=== PATIENT | female | born 1935 | race Caucasian/White ===

== ENCOUNTER 2017-02-27 16:15 | Inpatient (IN) | payer OTHER ==
[~2017-02-27] VITALS: Ht 152.4 cm; Wt 45.4 kg
--- NOTE | 2017-02-27 16:23 | NUR ---
SUJEY FROM [facility] DT FLU LIKE SYMPTOMS AND DIARRHEA X 3 DAYS. PATIENT RECEIVED AWAKE AND ALERT. NOTED ON O2 VIA NC @2LPM. SKIN IS WARM TO TOUCH AND NON DIAPHORETIC. AFEBRILE. VSS
--- NOTE | 2017-02-27 16:30 | NUR ---
MD LEE AT BEDSIDE
[2017-02-27 16:53] LABS: EOSINOPHILS % (AUTO) 0.1 % (0.0-6.0); HEMATOCRIT 44 % (33-45); HEMOGLOBIN 13.8 g/dL (11.5-14.8); LYMPHOCYTES % (AUTO) 9.8 % (20.0-44.0); MEAN CORPUSCULAR HEMOGLOBIN 29 PG (26.0-33.0); MEAN CORPUSCULAR HGB CONC 32 g/dl (31.0-36.0); MEAN CORPUSCULAR VOLUME 90 fL (82-100); MONOCYTES # (AUTO) 0.4 /CMM (0.1-1.30); MONOCYTES % (AUTO) 1.9 % (2.0-12.0); NEUTROPHILS # (AUTO) 17.7 /CMM (1.8-8.9); NEUTROPHILS % (AUTO) 88.2 % (43.0-81.0); PLATELET COUNT (AUTO) 313 /CMM (150-450); RDW COEFFICIENT OF VARIATION 14.7 (11.5-15.0); RED BLOOD CELL COUNT(AUTO) 4.83 MIL/uL (4.0-5.2); WHITE BLOOD COUNT (AUTO) 20.1 K/uL (4.3-11.0)
[2017-02-27 17:15] LABS: INR 1.11 (0.87-1.13); PROTHROMBIN TIME 11.6 SECS (9.5-12.7)
[2017-02-27 17:17] LABS: TROPONIN I < 0.017 ng/mL (0.00-0.056)
[2017-02-27 17:22] LABS: ALANINE AMINOTRANSFERASE 25 U/L (12-78); ALBUMIN 2.2 g/dL (3.4-5.0); ALKALINE PHOSPHATASE 163 U/L (46-116); ASPARTATE AMINOTRANSFERASE 31 U/L (15-37); B-TYPE NATRIURETIC PEPTIDE 6116 PG/ML (0-125); BILIRUBIN,DIRECT 0.2 mg/dL (0.0-0.2); BILIRUBIN,TOTAL 0.4 mg/dL (0.2-1.0); CALCIUM, SERUM 8.6 mg/dL (8.5-10.1); CARBON DIOXIDE 27 mmol/L (21-32); CHLORIDE 109 mmol/L (98-107); CREATININE 1.6 mg/dL (0.6-1.3); GLUCOSE 108 mg/dL (74-106); SODIUM SERUM 147 mmol/L (136-145); TOTAL PROTEIN, SERUM 6.8 g/dL (6.4-8.2); UREA NITROGEN, BLOOD 38 mg/dL (7-18)
[2017-02-27 17:26] LABS: POTASSIUM 2.6 mmol/L (3.5-5.1)
[2017-02-27] MEDS ORDERED: ASPI-1169 PO (17:42)
[2017-02-27] MEDS ORDERED: MIRT15TA7 PO (17:42)
[2017-02-27] MEDS ORDERED: ATOR80TA PO (17:42)
[2017-02-27] MEDS ORDERED: BETH25TA PO (17:42)
[2017-02-27] MEDS ORDERED: TRAZ-144 PO (17:42)
[2017-02-27] MEDS ORDERED: APIX2.5T PO (17:42)
--- NOTE | 2017-02-27 17:58 | NUR ---
PATIENT WAS TAKEN TO CT
[2017-02-27] MEDS ORDERED: VANCOMYCIN 1 GM in IV D5W 250 ML IV ONE (18:00)
[2017-02-27] MEDS ORDERED: PIPERACILLIN /TAZOBACTAM 2.25 G in IV D5W 50 ML IV ONE (18:00)
[2017-02-27] MEDS ORDERED: IV NS 0.9% 1,000 ML BAG IV ONE (18:00)
--- NOTE | 2017-02-27 18:25 | NUR ---
CALLED PHARMACY FOR POTASSIUM
--- NOTE | 2017-02-27 18:48 | NUR ---
JOSELYN SULILVAN (DR. MENDES)
--- NOTE | 2017-02-27 19:17 | NUR ---
REPORT GIVE TO CHRISTIANO TAYLOR
[2017-02-27] MEDS: POTASSIUM CL. PREMIX PERIPHER. 50 ML IV SCH ×2 (19:20→20:40)
[2017-02-27] MEDS ORDERED: IV NS 0.9% 1,000 ML IV PRN (19:22)
[2017-02-27] MEDS ORDERED: HYDROCODONE/APAP 5/325MG 1 EACH TABLET PO PRN (19:30)
[2017-02-27] MEDS ORDERED: MAGNESIUM HYDROXIDE 30 ML UDC PO PRN (19:30)
[2017-02-27] MEDS ORDERED: ACETAMINOPHEN 325 MG TABLET PO PRN (19:30)
[2017-02-27] MEDS ORDERED: ONDANSETRON HCL/PF 4 MG/2 ML VIAL IVP PRN (19:30)
[2017-02-27] MEDS ORDERED: Z GUARD REMEDY 2 OZ OINT TP PRN (19:30)
[2017-02-27] MEDS ORDERED: MAG HYDROX/AL HYDROX/SIMETH 30 ML UDC PO PRN (19:30)
--- NOTE | 2017-02-27 20:06 | NUR ---
Report given to Yusuf ALVARADO for admission and gbay.
--- NOTE | 2017-02-27 20:57 | NUR ---
Patient transferred to tele floor via als protocol, no incident noted. Endorsed to Yusuf ongoing IV NS infusing with about 400cc left and ongoing 2nd bag of kcl. family at bedside.
[2017-02-27 21:00] VITALS: BP 102/75
--- NOTE | 2017-02-27 21:30 | NUR ---
DENTAL COORDINATOR NOTE: RECEIVED PATIENT FROM ER, NO ACUTE DISTRESS NOTED, FAMILY AT BEDSIDE. BREATHING EVEN AND UNLABORED, NO SOB NOTED. IV TO RAC IN PLACE AND LFA IN PLACE. ORIENTED PATIENT TO ROOM AND USE OF CALL LIGHT. LUONG CATHETER IN PLACE. BED LOCKED AND IN LOWEST POSITION, CALL LIGHT IN REACH. WILL CONTINUE TO MONITOR. Addendum: 02/28/17 at 0624 by SNEHA RIVERA RN TELE READING AFIB, HR 100-120
[2017-02-27] MEDS ORDERED: ZOLPIDEM TARTRATE 5 MG TABLET PO PRN (22:00)
[2017-02-27] MEDS: TRAZODONE 50 MG TABLET PO SCH (22:27)
[2017-02-27] MEDS: MIRTAZAPINE 15 MG TABLET PO SCH (22:27)
--- NOTE | 2017-02-27 23:00 | NUR ---
WAFER CUTTER NOTE: MONTSE NURSELEDY AT BEDSIDE TRYING TO START MIDLINE. UNABLE TO GET MIDLINE PLACED. PATIENT ALSO HAS ORDERS FOR PICC LINE. MIDLINE SPOKE TO REAL AND WILL TRY IN MORNING TO START PICC LINE. FAMILY STILL AT BEDSIDE, INFORMED THAT PATIENT NEEDS PICC LINE PLACEMENT SINCE PATIENT IS A HARD STICK. OBTAIN CONSENT FOR PICC LINE PLACEMENT. WILL CONTINUE TO MONITOR.
[2017-02-27] MEDS: ZOSYN IVPB 2.25 G in IV D5W 50ml IV SCH (23:17)
[2017-02-28] VITALS: BP 109/81
[2017-02-28 02:38] LABS: APPEARANCE,URINE CLOUDY (CLEAR); BILIRUBIN,URINE 2+ (NEGATIVE); BLOOD, URINE 3+ Ery/uL (NEGATIVE); COLOR,URINE BROWN (YELLOW); KETONES,URINE TRACE (NEGATIVE); LEUKOCYTE ESTERASE ,URINE TRACE (NEGATIVE); NITRITE, URINE POSITIVE (NEGATIVE); PH,URINE 6.5 (5.0-8.0); PROTEIN,URINE 3+ mg/dl (NEGATIVE); UGLUCOSE NEGATIVE (NEGATIVE)
--- NOTE | 2017-02-28 03:00 | NUR ---
MS RN NOTE: PATIENT IV TO RAC, DISLODGED, IV REMOVED, COVERED WITH GAUZE, PRESSURE APPLIED AND SECURED WITH TAPE. WILL CONTINUE TO MONITOR
[2017-02-28 03:20] LABS: BACTERIA,URINE None seen /HPF (None Seen); RBC,URINE TOO NUMEROUS TO COUN /HPF (0-2); SQUAMOUS EPITHELIAL CELL,UR None Seen /HPF (None Seen); WBC,URINE NONE SEEN /HPF (0-3)
[2017-02-28 04:00] VITALS: BP 116/62
[2017-02-28] MEDS: ZOSYN IVPB 2.25 G in IV D5W 50ml IV SCH ×4 (06:04→23:57)
--- NOTE | 2017-02-28 06:05 | NUR ---
SUPERVISOR OF COMMUNICATIONS NOTE: PATIENT RESTING IN BED, NO ACUTE DISTRESS NOTED. BREATHING EVEN AND UNLABORED, NO SOB NOTED. IV TO LFA IN PLACE. LUONG CATHETER IN PLACE. BED LOCKED AND IN LOWEST POSITION, CALL LIGHT IN REACH. WILL ENDORSE TO DAY NURSE TO CONTINUE WITH PLAN OF CARE.
[2017-02-28 06:51] LABS: BASOPHILS % (AUTO) 0.1 % (0.0-2.0); EOSINOPHILS % (AUTO) 0.1 % (0.0-6.0); HEMATOCRIT 38 % (33-45); HEMOGLOBIN 12.3 g/dL (11.5-14.8); LYMPHOCYTES # (AUTO) 1.3 /CMM (0.8-4.8); LYMPHOCYTES % (AUTO) 7.5 % (20.0-44.0); MEAN CORPUSCULAR HEMOGLOBIN 30 PG (26.0-33.0); MEAN CORPUSCULAR HGB CONC 33 g/dl (31.0-36.0); MEAN CORPUSCULAR VOLUME 91 fL (82-100); MONOCYTES # (AUTO) 0.8 /CMM (0.1-1.30); NEUTROPHILS # (AUTO) 14.7 /CMM (1.8-8.9); NEUTROPHILS % (AUTO) 87.3 % (43.0-81.0); PLATELET COUNT (AUTO) 250 /CMM (150-450); RDW COEFFICIENT OF VARIATION 14.4 (11.5-15.0); RED BLOOD CELL COUNT(AUTO) 4.15 MIL/uL (4.0-5.2); WHITE BLOOD COUNT (AUTO) 16.9 K/uL (4.3-11.0)
[2017-02-28 07:23] LABS: CALCIUM, SERUM 8.1 mg/dL (8.5-10.1); CARBON DIOXIDE 20 mmol/L (21-32); CHLORIDE 120 mmol/L (98-107); CREATININE 1.5 mg/dL (0.6-1.3); GLUCOSE 96 mg/dL (74-106); MAGNESIUM 1.9 mg/dL (1.8-2.4); PHOSPHORUS 3.8 mg/dL (2.5-4.9); POTASSIUM 2.9 mmol/L (3.5-5.1); SODIUM SERUM 154 mmol/L (136-145); UREA NITROGEN, BLOOD 38 mg/dL (7-18)
--- NOTE | 2017-02-28 07:45 | NUR ---
JOURNALISM INTERN NOTES PATIENT ALERT AND ORIENTED X3, MICRONESIAN SPEAKING ONLY, BREATHING EVEN AND UNLABORED, NO DISTRESS NOTED, DENIES PAIN OR DISCOMFORT AT THIS TIME, NEEDS ATTENDED AND MET, KEPT COMFORTABLE, CALL LIGHT WITHIN REACH, SAFETY MEASURES IN PLACED, WILL CONTINUE TO MONITOR.
[2017-02-28 08:00] VITALS: BP_SYST 100; BP_SYST 102; BP_DIAS 56; BP_DIAS 57
[2017-02-28] MEDS ORDERED: POTASSIUM CHLORIDE 20 MEQ TAB.PRT.SR PO ONE (08:30)
[2017-02-28] MEDS ORDERED: IV 1/2NS 1000 ML 1,000 ML IV SCH (08:30)
[2017-02-28] MEDS ORDERED: ASPIRIN 81 MG TAB.CHEW PO SCH (09:00)
[2017-02-28] MEDS ORDERED: APIXABAN 2.5 MG TABLET PO SCH (09:00)
[2017-02-28] MEDS ORDERED: APIXABAN 2.5 MG TABLET PO ONE (09:00)
[2017-02-28] MEDS: BETHANECHOL CHLORIDE (25 MG) 25 MG TABLET PO SCH (09:29)
[2017-02-28] MEDS: POTASSIUM CL. PREMIX PERIPHER. 50 ML IV SCH ×4 (09:49→14:09)
--- NOTE | 2017-02-28 11:48 | NUR ---
RESEARCH ASSOCIATE MOLECULAR BIOLOGY NOTES TELE MONITOR SHOWS A. FIB WITH HEART UPTO 126. PATIENT RESTING, ALERT AND ORIENTED, DENIES ANY CHEST PAIN. INFORMED DR. MENDES. RECEIVED NEW ORDER FOR CARDIZEM 10MG IV ONCE FOR HR > 110. ORDER NOTED AND CARRIED OUT.
[2017-02-28] MEDS ORDERED: DILTIAZEM HCL 50 MG IV IV ONE (12:00)
[2017-02-28] MEDS ORDERED: DILTIAZEM HCL 25 MG IV IV ONE (12:30)
--- NOTE | 2017-02-28 12:52 | NUR ---
ENGLISH COMPOSITION INSTRUCTOR NOTES CARDIZEM GIVEN SLOWLY. RECHECKED VS AFTER, HR 96 BP 90/58. PATIENT ALERT AND ORIENTED X3, NO CHANGE IN LOC, NO DISTRESS NOTED. WILL CLOSELY MONITOR.
--- NOTE | 2017-02-28 13:02 | NUR ---
PHYSICAL THERAPY ASSISTANT INSTRUCTOR NOTES BP RECHECKED AND IMPROVED, 108/69, HR 102. STILL COMPLAINING OF EAR PAINPATIENT ASLEEP BUT EASILY AROUSABLE. NO DISTRESS NOTED. WILL CLOSELY MONITOR. Addendum: 02/28/17 at 1303 by BECCA MCGUIRE RN ADDENDUM: DR. MENDES AWARE OF EAR PAIN.
[2017-02-28] MEDS: Potassium Chloride 20 MEQ in IV D5W 1,000 ML IV PRN (15:16)
[2017-02-28 17:59] VITALS: BP 118/71
[2017-02-28] MEDS: BOOST PLUS FOOD-VANILLA 237 ML BOX PO SCH (17:59)
--- NOTE | 2017-02-28 18:31 | NUR ---
UX INTERACTION DESIGNER NOTES PATIENT ALERT AND ORIENTED X3, DAUGHTER AT BEDSIDE, NO DISTRESS NOTED, HR SHOWS 108 AT THIS TIME. DENIES PAIN OR DISCOMFORT. PATIENT KEPT COMFORTABLE, NEEDS ATTENDED AND MET, SKIN DRY AND INTACT, Z-GUARD APPLIED FOR SKIN PROTECTION. PATIENT HAD MULTIPLE LOOSE BM TODAY, IVF INFUSING AND TOLERATING WELL, BUE NOTED WITH NON-PITTING EDEMA. CALL LIGHT WITHIN REACH, WILL ENDORSE TO ADMINISTRATIVE ASST FOR CURT.
--- NOTE | 2017-02-28 19:00 | NUR ---
RN OPENING NOTES PT IN BED, AWAKE, ALGERIAN SPEAKING, VERBALLY RESPONSIVE, NO NOTED FACIAL GRIMACING, NO SIGNS AND SYMPTOMS OF ACUTE DISTRESS, PT NOTED TO HAVE UNCONTROLLED A-FIB SR @ 136. NOTED PT WITH NO SOB, BREATHING EVEN AND UNLABORED. CALL LIGHT PLACED WITHIN EASY REACH. WILL CONTINUE TO MONITOR.
[2017-02-28 20:08] VITALS: BP 102/56
[2017-02-28] MEDS: TRAZODONE 50 MG TABLET PO SCH (21:35)
[2017-02-28] MEDS: ATORVASTATIN 40 MG TABLET PO SCH (21:35)
[2017-02-28] MEDS: MIRTAZAPINE 15 MG TABLET PO SCH (21:35)
[2017-03-01] VITALS (7 sets, daily range): BP systolic 81–141; BP diastolic 52–68
[2017-03-01] MEDS: DILTIAZEM HCL 25 MG IV IV PRN ×2 (02:51→12:39)
--- NOTE | 2017-03-01 02:51 | NUR ---
RN NOTES PT STILL A-FIB , HEART RATE IS GOING UP TO 132- CARDIZEM 10MG IV GIVEN PER MD'S ORDER, V/S STABLE
[2017-03-01] MEDS: ZOSYN IVPB 2.25 G in IV D5W 50ml IV SCH ×4 (05:02→23:58)
[2017-03-01] MEDS: Potassium Chloride 20 MEQ in IV D5W 1,000 ML IV PRN (05:54)
--- NOTE | 2017-03-01 06:21 | NUR ---
RN CLOSING NOTES PT IN BED, ASLEEP BUT EASILY AROUSABLE, VERBALLY RESPONSIVE, NOTED WITH NO SOB, BREATHING EVEN AND UNLABORED, NO C/O PAIN AT THIS TIME, CONTINUES TO RECEIVE IV HYDRATION ORDERED VIA MIDLINE ON ARIES, PATENT AND INFUSING WELL. PT WITH LUONG CATHETER DRAINING WELL WITH YELLOW URINE. PT CONTINUES TO BE ON AFIB WITH SR @ 99. ALL PATIENT'S NEEDS ATTENDED TO, PLACED BED IN LOW POSITION AND LOCKED IN PLACE. CALL LIGHT PLACED WITHIN EASY REACH. WILL ENDORSE TO AM NURSE FOR CONTINUITY OF CARE.
--- NOTE | 2017-03-01 07:55 | NUR ---
TELE/RN PATIENT RECEIVED PATEINT RECEIVED IN BED AWAKE. JAMAICAN SPEAKING. ALERT AND ORIENTED TO PERSON, PLACE AND SITUATION. THE PATIENT WITH UNCONTROLLED AFIB AT 110. AUGUSTINE PAIN. RESPIRATION REGULAR AND UNLABORED. DENIES SOB. IN NO APPARENT DISTRESS. BED LOW AND LOCKED. BED ALARM ON. CALL LIGHT WITHIN REACH. WILL CONTONUE TO MONITOR.
[2017-03-01] MEDS: APIXABAN 2.5 MG TABLET PO SCH (09:00)
[2017-03-01] MEDS ORDERED: POTASSIUM CL. PREMIX PERIPHER. 50 ML IV SCH ×2 (10:00→13:00)
--- NOTE | 2017-03-01 11:14 | NUR ---
MS/RN Cardizem Patient's heart rate noted to be 125 on monitor. Order already written to administer cardizem 10mg IVP if HR greater than 110. Vital signs taken and heart rate confirmed to be greater than 110, blood pressure 107/74. Spoke with SHANIQUE Espinosa, stated to hold medication at this time as heart rate now reading 105-113 on tele monitor. Will continue to monitor.
[2017-03-01] MEDS: BOOST PLUS FOOD-VANILLA 237 ML BOX PO SCH ×2 (11:15→16:54)
[2017-03-01] MEDS: BETHANECHOL CHLORIDE (25 MG) 25 MG TABLET PO SCH (11:15)
--- NOTE | 2017-03-01 12:51 | NUR ---
MS/RN Cardizem Heart rate sustaining at 120-130, per MD order cardizem 10mg given IVP over two minutes. nuclear medicine technician made aware and monitored patient's rhythm. Heart rate after five minutes 99. Will continue to monitor.
--- NOTE | 2017-03-01 13:54 | NUR ---
MS/tree inspector rate Heart rate now 98.
[2017-03-01] MEDS: POTASSIUM CL. PREMIX PERIPHER. 50 ML IV SCH ×6 (14:33→22:20)
[2017-03-01 15:15] LABS: BASOPHILS % (AUTO) 0.1 % (0.0-2.0); EOSINOPHILS # (AUTO) 0.1 /CMM (0.0-0.7); EOSINOPHILS % (AUTO) 0.7 % (0.0-6.0); HEMATOCRIT 34 % (33-45); HEMOGLOBIN 10.7 g/dL (11.5-14.8); LYMPHOCYTES # (AUTO) 1.1 /CMM (0.8-4.8); LYMPHOCYTES % (AUTO) 8.4 % (20.0-44.0); MEAN CORPUSCULAR HEMOGLOBIN 29 PG (26.0-33.0); MEAN CORPUSCULAR HGB CONC 32 g/dl (31.0-36.0); MEAN CORPUSCULAR VOLUME 90 fL (82-100); MONOCYTES # (AUTO) 0.4 /CMM (0.1-1.30); MONOCYTES % (AUTO) 3.3 % (2.0-12.0); NEUTROPHILS # (AUTO) 11.1 /CMM (1.8-8.9); NEUTROPHILS % (AUTO) 87.5 % (43.0-81.0); PLATELET COUNT (AUTO) 228 /CMM (150-450); RDW COEFFICIENT OF VARIATION 14.9 (11.5-15.0); RED BLOOD CELL COUNT(AUTO) 3.74 MIL/uL (4.0-5.2); WHITE BLOOD COUNT (AUTO) 12.7 K/uL (4.3-11.0)
[2017-03-01 15:35] LABS: TROPONIN I < 0.017 ng/mL (0.00-0.056)
[2017-03-01 15:41] LABS: CHOLESTEROL 68 mg/dL (<200); HDL CHOLESTEROL 30 mg/dL (40-60); LDL 24 mg/dL (0-99); THYROID STIMULATING HORMONE 0.788 uIU/mL (0.358-3.74); TRIGLYCERIDES 122 mg/dL (30-150)
--- NOTE | 2017-03-01 17:04 | NUR ---
MS/RN Elevated heart rate Patient's heart rate to be 157, patient checked, appears in no distress, denies pain or discomfort. Dr Oleary called, awaiting call back.
[2017-03-01] MEDS ORDERED: DIGOXIN INJ 0.5 MG/2 ML AMPUL IV ONE ×2 (17:30→23:30)
--- NOTE | 2017-03-01 17:30 | NUR ---
MS/RN Digoxin Received call back from Dr Oleary: -digoxin 0.5mg IV X1 now -digoxin 0.25mg IV X2 dosages every six hours -digoxin o.125mg daily, starting Sunday. Orders entered into computer, waiting for pharmacy to verify.
[2017-03-01 17:47] LABS: CALCIUM, SERUM 7.4 mg/dL (8.5-10.1); CARBON DIOXIDE 18 mmol/L (21-32); CHLORIDE 112 mmol/L (98-107); CREATININE 1.8 mg/dL (0.6-1.3); GLUCOSE 126 mg/dL (74-106); POTASSIUM 3.5 mmol/L (3.5-5.1); SODIUM SERUM 144 mmol/L (136-145); UREA NITROGEN, BLOOD 41 mg/dL (7-18)
--- NOTE | 2017-03-01 17:58 | NUR ---
MS/RN Digoxin 0.5mg First dose of digoxin administered IVP slowly. Before medication heart rate 157, post medication 130's. Will continue to monitor.
--- NOTE | 2017-03-01 19:30 | NUR ---
RN INITIAL NOTES PATIENT UP IN BED, ALERT AND ORIENTED X 2, VERBALLY RESPONSIVE, NOTED WITH NO SOB, BREATHING EVEN AND UNLABORED, CONTINUES TO RECEIVE IV MEDICATION ORDERED VIA MIDLINE ON ARIES. PT'S DAUGHTER, KITA AT BEDSIDE. PATIENT WITH NO C/O PAIN, NO SIGNS AND SYMPTOMS OF ACUTE DISTRESS AT THIS TIME. ALL PATIENT'S NEEDS ATTENDED TO. CALL LIGHT PLACED WITHIN EASY REACH. WILL CONTINUE TO MONITOR.
[2017-03-01] MEDS: TRAZODONE 50 MG TABLET PO SCH (21:44)
[2017-03-01] MEDS: ATORVASTATIN 40 MG TABLET PO SCH (21:44)
[2017-03-01] MEDS: MIRTAZAPINE 15 MG TABLET PO SCH (21:44)
--- NOTE | 2017-03-01 23:41 | NUR ---
RN NOTE PATIENT'S HR @ 103 BPM, DIGOXIN 0.25 MG GIVEN VIA SLOW IV PUSH, ORDERED.
[2017-03-02] VITALS (7 sets, daily range): BP systolic 90–116; BP diastolic 45–79
--- NOTE | 2017-03-02 03:38 | NUR ---
RN NOTES NOTED PT WITH BP AT 72/40, PT IS ASLEEP, EASILY AWOKEN AND VERBALLY RESPONSIVE. INFORMED DR. AURA QUIROGA, RECEIVED NEW ORDER TO GIVE IV NS 500MG BOLUS DOSE. ALL ORDERS NOTED AND CARRIED OUT.
[2017-03-02] MEDS ORDERED: IV NS 0.9% 500 ML IV ONE (04:00)
[2017-03-02] MEDS: ZOSYN IVPB 2.25 G in IV D5W 50ml IV SCH ×3 (05:04→17:21)
[2017-03-02] MEDS ORDERED: DIGOXIN INJ 0.5 MG/2 ML AMPUL IV ONE (05:30)
--- NOTE | 2017-03-02 05:58 | NUR ---
RN NOTE PATIENT'S HEART RATE @ 81 BPM, DIGOXIN 0.25 MG GIVEN VIA SLOW IV PUSH ORDERED.
--- NOTE | 2017-03-02 06:56 | NUR ---
RN CLOSING NOTES PATIENT IN BED, ASLEEP BUT EASILY AROUSABLE, VERBALLY RESPONSIVE. NOTED WITH NO SOB, BREATHING EVEN AND UNLABORED, NOTED WITH NO FACIAL GRIMACING, CONTINUES TO RECEIVE O2 VIA NC @2LPM. PT WITH O2 SAT @ 100%. PT WITH BP @ 93/56, CONTINUES TO BE ON A-FIB WITH SR @ 81 BPM. WITH IV MIDLINE ON ARIES. ALL PATIENT'S NEEDS ATTENDED TO, PLACED CALL LIGHT WITHIN EASY REACH, PLACED BED IN LOW POSITION, LOCKED IN PLACE.
--- NOTE | 2017-03-02 07:30 | NUR ---
PUMPMAN NOTES PT IN BED, ASLEEP, EASY TO AROUSE, ALERT AND VERBALLY RESPONSIVE, NOT IN DISTRESS, VITAL SIGNS STABLE, AFEBRILE, CALL LIGHT WITHIN REACH, KEPTWARM AND COMFORTABLE.
[2017-03-02 07:59] LABS: BASOPHILS % (AUTO) 0.2 % (0.0-2.0); EOSINOPHILS # (AUTO) 0.1 /CMM (0.0-0.7); EOSINOPHILS % (AUTO) 1.5 % (0.0-6.0); HEMATOCRIT 29 % (33-45); HEMOGLOBIN 9.2 g/dL (11.5-14.8); LYMPHOCYTES % (AUTO) 14.6 % (20.0-44.0); MEAN CORPUSCULAR HEMOGLOBIN 29 PG (26.0-33.0); MEAN CORPUSCULAR HGB CONC 32 g/dl (31.0-36.0); MEAN CORPUSCULAR VOLUME 89 fL (82-100); MONOCYTES # (AUTO) 0.3 /CMM (0.1-1.30); MONOCYTES % (AUTO) 4.4 % (2.0-12.0); NEUTROPHILS # (AUTO) 5.5 /CMM (1.8-8.9); NEUTROPHILS % (AUTO) 79.3 % (43.0-81.0); PLATELET COUNT (AUTO) 190 /CMM (150-450); RDW COEFFICIENT OF VARIATION 14.6 (11.5-15.0); WHITE BLOOD COUNT (AUTO) 6.9 K/uL (4.3-11.0)
[2017-03-02] MEDS: BETHANECHOL CHLORIDE (25 MG) 25 MG TABLET PO SCH (08:34)
[2017-03-02] MEDS: APIXABAN 2.5 MG TABLET PO SCH (08:34)
--- NOTE | 2017-03-02 08:35 | NUR ---
BINDER LAYER NOTES PT IN BED, AWAKE, NOT IN DISTRESS, SEEN BY DR. MENDES, INFORMED OF PT'S EPISODE OF LOW BP.
[2017-03-02] MEDS: BOOST PLUS FOOD-VANILLA 237 ML BOX PO SCH ×2 (08:50→17:21)
[2017-03-02 10:30] LABS: ALANINE AMINOTRANSFERASE 24 U/L (12-78); ALKALINE PHOSPHATASE 111 U/L (46-116); ASPARTATE AMINOTRANSFERASE 30 U/L (15-37); BILIRUBIN,TOTAL 0.2 mg/dL (0.2-1.0); CALCIUM, SERUM 7.6 mg/dL (8.5-10.1); CARBON DIOXIDE 22 mmol/L (21-32); CHLORIDE 115 mmol/L (98-107); CREATININE 1.5 mg/dL (0.6-1.3); GLUCOSE 116 mg/dL (74-106); MAGNESIUM 1.7 mg/dL (1.8-2.4); PHOSPHORUS 2.2 mg/dL (2.5-4.9); POTASSIUM 4.3 mmol/L (3.5-5.1); SODIUM SERUM 144 mmol/L (136-145); TOTAL PROTEIN, SERUM 4.9 g/dL (6.4-8.2); UREA NITROGEN, BLOOD 35 mg/dL (7-18)
[2017-03-02 10:33] LABS: TROPONIN I 0.024 ng/mL (0.00-0.056)
[2017-03-02 10:40] LABS: ALBUMIN 1.4 g/dL (3.4-5.0)
--- NOTE | 2017-03-02 11:19 | NUR ---
IRISH MOSS GATHERER NOTES DR. HOWE INFORMED OF ABNORMAL MAGNESIUM AND PHOS LEVELS, ORDERS GIVEN, ALSO INFORMED OF LOW ALBUMIN LEVEL, NO ORDER GIVEN, NOTED AND CARRIED OUT.
[2017-03-02] MEDS ORDERED: NEUTRA PHOS 1 POWD.PACKET PO ONE (11:30)
[2017-03-02] MEDS: Magnesium 1GM/D5W 100ML PREMIX 1 G in PREMIX 1 EA IV SCH ×2 (13:16→14:24)
[2017-03-02] MEDS ORDERED: Digoxin PO (15:01)
[2017-03-02] MEDS ORDERED: LEVO500T75 PO (15:01)
--- NOTE | 2017-03-02 19:15 | NUR ---
NEWSPAPER COLUMNIST NOTES PT IN BED, AWAKE, ALERT AND ORIENTED, DISCHARGE ORDER GIVEN BY MD, DISCHARGE AND MEDICATION INSTRUCTIONS PROVIDED TO PT AND PT'S DAUGHTER LURDES, VERBALIZED UNDERSTANDING, PRESCRIPTION GIVEN TO DAUGHTER, BELONGINGS ACCOUNTED FOR, INITIAL [place] [facility] ATTEND[facility] TIME IS 1730, AMBULANCE CALLED, SAID THEY ARE GOING TO BE LATE AND THEY WILL ARRIVE AT 1830, AMBULANCE [place] [facility] ATTENDANT CAME, NOTED PT'S BP IS 92/60 WITH HR OF 78, CHECKED MANUALLY, 90/50, PT DOES NOT COMPLAIN OF DIZZINESS, NO CHANGE OF LEVEL OF CONSCIOUSNESS, DR. MENDES INFORMED OF PT'S LOW BP, PLACED AMBULANCE ON WILL CALL WHILE WAITING FOR MD'S ORDER, MD TEXTED BACK AND SAID IT IS OK FOR PT TO BE DISCHARGED, NO NEW ORDERS GIVEN, PT'S DAUGHTER LURDES AT BEDSIDE, AWAITING PT [place] [facility] ATTENDANT.
--- NOTE | 2017-03-02 20:09 | NUR ---
TELE/RN CALLED THE DAUGHTER, LURDES, , TOLD HER THAT THE DOCTOR CLEARED HER MOTHER FOR DISCHARGE. THE DAUGHTER WAS UPSET, PER DAUGHTER HER MOM'S BP WAS NOT GOOD AND THAT SHE IS NOT COMFORTABLE OF HER MOM GOING TO ASSISTED [facility]IVING FACILITY FOR SHE WILL SURELY COME BACK TO THE E.R. IF THE BP IS THE SAME IN THE FACILITY. SHE FURTHER SAID THAT SHE WANTS HER MOM TO STAY HERE AND OBSERVE BP UNTIL TOMORROW. PLACED CALL TO [facility], LEFT MESSAGE.
--- NOTE | 2017-03-02 20:59 | NUR ---
TELE/RN CALLED AGAIN [facility] AND SPOKE DR. CHAVARRIA. INFORMED DR. CHAVARRIA OF THE DISCHARGE ISSUE. RECEIVED ORDER TO HOLD THE D/C.
--- NOTE | 2017-03-02 21:04 | NUR ---
TELE/RN LURDES, DAUGHTER, WAS NOTIFIED RE: D/C WAS HELD.
[2017-03-02] MEDS: TRAZODONE 50 MG TABLET PO SCH (22:00)
[2017-03-02] MEDS: ATORVASTATIN 40 MG TABLET PO SCH (22:00)
[2017-03-02] MEDS: MIRTAZAPINE 15 MG TABLET PO SCH (22:00)
[2017-03-03] VITALS: BP 107/67
[2017-03-03] MEDS: ZOSYN IVPB 2.25 G in IV D5W 50ml IV SCH ×3 (00:07→11:55)
--- NOTE | 2017-03-03 02:13 | NUR ---
MS/RN PATIENT IS SLEEPING, AROUSABLE, APPEAR COMFORTABLE, NO SIGNS OF DISTRESS NOTED, CALL LIGHT IN REACH. WILL CONTINUE TO MONITOR.
[2017-03-03 04:00] VITALS: BP 104/69
--- NOTE | 2017-03-03 06:08 | NUR ---
MS/RN STILL SLEEPING, AROUSABLE, APPEAR COMFORTABLE, NO DISTRESS NOTED, ALL NEEDS ATTENDED AT THIS TIME. WILL CONTINUE TO MONITOR.
--- NOTE | 2017-03-03 07:20 | NUR ---
RN NOTES: PATIENT RESTING IN BED. PATIENT AOX2,PATIENT AROUSABLE. MIDLINE ON RIGHT UPPER ARM PATENT AND INTACT. PATIENT ON TELE MONITORING WITH AFIB NOTED ON 71. NO FACIAL GRIMACING NOTED. NONLABORED BREATHING ON ROOM AIR. BED IN LOWEST LOCKED POSITION. CALL LIGHT WITHIN REACH. WILL CONTINUE TO MONITOR
[2017-03-03 08:00] VITALS: BP 104/64
[2017-03-03] MEDS ORDERED: ERGOCALCIFEROL (VITAMIN D 2) 50,000 UNIT CAPSULE PO SCH (09:00)
[2017-03-03] MEDS ORDERED: Magnesium 1GM/D5W 100ML PREMIX 100 ML IV SCH (09:00)
[2017-03-03] MEDS: BOOST PLUS FOOD-VANILLA 237 ML BOX PO SCH (09:05)
[2017-03-03] MEDS: APIXABAN 2.5 MG TABLET PO SCH (09:44)
--- NOTE | 2017-03-03 10:38 | NUR ---
RN NOTES: DR SOLO NOTIFIED THAT MAGNESIUM WAS REPLACED YESTERDAY, ORDER DISCONTINUED FOR TODAY, BP NOTED TO BE 96/50, DR SOLO STATED IT IS OK TO ADMINISTER URECHOLINE, HE ALSO ORDERED TO INFUSE 500 ML NORMAL SALINE 250 ML/HOUR FOR 2 HOURS
[2017-03-03] MEDS: BETHANECHOL CHLORIDE (25 MG) 25 MG TABLET PO SCH (10:55)
[2017-03-03] MEDS ORDERED: IV NS 0.9% 500 ML BAG IV ONE (11:00)
[2017-03-03] MEDS ORDERED: DIGOXIN 0.25 MG TABLET PO SCH (13:00)
[2017-03-03 13:24] VITALS: BP 114/65
--- NOTE | 2017-03-03 14:42 | NUR ---
RN CLOSING PATIENT DISCHARGED TO [facility] PER MD ORDERS. PATIENT STABLE. VS WNL. NO SIGNS OF DISTRESS. MIDLINE REMOVED WITH TIP INTACT. NO SIGNS OF DISTRESS NOTED. PATIENT ATE 25% OF LUNCH, REFUSED TO EAT THE REST. OFFERED MULTIPLE TIMES, VACCINES REFUSED, BENEFITS AND RISKS EXPLAINED MANY TIMES SPOKE TO DAUGHTER ANGELA WHO CONFIRMED HER PICKING UP THE PRESCRIPTION WELL THE PATIENT'S BLOUSE AND ELQUIS ON 03/02/17. DAUGHTER AWARE OF TRANSFER,. PATIENT AOX2. DAUGHTER EDUCATED ON INSTRUCTIONS. SPOKE WITH KIMBERLEY AT [facility] AND GAVE REPORTS. PATIENT LEFT WITH AMBULANCE.
[2017-03-06 08:08] LABS: *SPE A/G RATIO 0.7 (0.7-1.7); *SPE ALBUMIN 1.9 g/dL (2.9-4.4); *SPE ALPHA-1-GLOBULIN 0.3 g/dL (0.0-0.4); *SPE ALPHA-2-GLOBULIN 0.8 g/dL (0.4-1.0); *SPE BETA GLOBULIN 0.8 g/dL (0.7-1.3); *SPE GLOBULIN, TOTAL 2.7 g/dL (2.2-3.9); *SPE M-SPIKE 0.5 g/dL (Not Observed); *SPEGAMMA GLOBULIN 0.8 g/dL (0.4-1.8)
== END 2017-03-03 14:40 | disposition home or self-care (01) | DRG 720 ==
LOC: ER 16:20 → TELE 20:27 → MED 03-03 09:59
PROVIDERS: ADMIT Internal Medicine; ATTEND Internal Medicine
PROC: 05H633Z Insertion of Infusion Device into Left Subclavian Vein, Percutaneous Approach (ICD-10-PCS; principal; 2017-02-28)
PROC: 05H533Z Insertion of Infusion Device into Right Subclavian Vein, Percutaneous Approach (ICD-10-PCS; principal; 2017-02-28)
DX: A41.9 Sepsis, unspecified organism (principal); N17.0 Acute kidney failure with tubular necrosis; E43 Unspecified severe protein-calorie malnutrition; G92 Toxic encephalopathy; E87.0 Hyperosmolality and hypernatremia; E87.2 Acidosis; N39.0 Urinary tract infection, site not specified; K55.9 Vascular disorder of intestine, unspecified; I48.91 Unspecified atrial fibrillation; E78.5 Hyperlipidemia, unspecified; E87.6 Hypokalemia; I10 Essential (primary) hypertension; I70.0 Atherosclerosis of aorta; Z79.899 Other long term (current) drug therapy; Z79.82 Long term (current) use of aspirin; Z79.01 Long term (current) use of anticoagulants; M81.0 Age-related osteoporosis without current pathological fracture; A09 Infectious gastroenteritis and colitis, unspecified
CPT/HCPCS: 36415; 71010-TC; 80048-TC; 80053-TC; 80061-TC; 80076-TC; 81000-TC; 82306; 83605-TC; 83735-TC; 83880; 84100-TC; 84155; 84165; 84439-TC; 84443-TC; 84484-TC; 85025-TC; 85730-TC; 87040-TC; 87045-TC; 87081-TC; 87086-TC; 87400; 93307-TC; 97110-TC; 97530-TC; A4216; A4606; J1160; J2543; J3370; J3475; J3480; J3490; J7030; J7040; J7050; J7060; J7070; Z7610

== ENCOUNTER 2017-03-05 21:11 | Inpatient (IN) | payer OTHER ==
[~2017-03-05 21:11] MED LIST: APIX2.5T PO; ASPI-1169 PO; ATOR80TA PO; BETH25TA PO; Digoxin PO; LEVO500T75 PO; MIRT15TA7 PO; TRAZ-144 PO
[2017-03-05 23:10] VITALS: BP 140/66
[2017-03-05] MEDS ORDERED: IV NS 0.9% 1,000 ML IV PRN (23:27)
[2017-03-05] MEDS ORDERED: HYDROCODONE/APAP 5/325MG 1 EACH TABLET PO PRN (23:30)
[2017-03-05] MEDS ORDERED: Z GUARD REMEDY 2 OZ OINT TP PRN (23:30)
[2017-03-05] MEDS ORDERED: ONDANSETRON HCL/PF 4 MG/2 ML VIAL IVP PRN (23:30)
[2017-03-05] MEDS ORDERED: MAGNESIUM HYDROXIDE 30 ML UDC PO PRN (23:30)
[2017-03-05] MEDS ORDERED: ENOXAPARIN SODIUM 40 MG/0.4 ML DISP.SYRIN SQ SCH (23:30)
[2017-03-05] MEDS ORDERED: MAG HYDROX/AL HYDROX/SIMETH 30 ML UDC PO PRN (23:30)
[2017-03-05] MEDS ORDERED: ACETAMINOPHEN 325 MG TABLET PO PRN (23:30)
[2017-03-05] MEDS ORDERED: ENOXAPARIN SODIUM 40 MG/0.4 ML DISP.SYRIN SQ ONE (23:47)
[2017-03-06] VITALS: BP 140/66
[2017-03-06] MEDS: CEFTRIAXONE 1 G in IV D5W 50 ML IV SCH ×2 (00:30→23:51)
[2017-03-06 04:00] VITALS: BP 137/71
[2017-03-06] MEDS ORDERED: METRONIDAZOLE 500MG/ NS 100ML 100 ML IV ONE (06:23)
[2017-03-06] MEDS: METRONIDAZOLE 500MG/ NS 100ML 500 MG in PREMIX 1 EA IV SCH ×4 (06:31→23:50)
--- NOTE | 2017-03-06 07:30 | NUR ---
RN NOTES RECEIVED PT FROM MANAGER MEMBERSHIP IN STABLE CONDITION, A&0X1-2 PRIMARILY FARSI SPEAKING. ON ROOM AIR NO SOB OR DISTRESS NOTED. LUONG DRAINING TO GRAVITY YELLOW IN COLOR. BED LOCKED AND IN LOWEST POSITION, CALL LIGHT WITHIN REACH, SIDE RAILS UPX3, WILL CONT TO MARCOS.
--- NOTE | 2017-03-06 07:49 | NUR ---
RN CLOSING NOTE NO SIGNIFICANT CHANGES DURINGF THE SGIFT, AFEBRILE, NO S/S OF DISTRESS, NO S/S OF PAIN, PAGED DOCTOR VAUGHN TO GET AN ORDER FOR CODE STATUS, ENDORSED IT TO CHRISTIANO MILLER TO FOLLOW WITH A DOCTOR, SIDE RAIL UP X 2, BED ALARM ACTIVATED, BED IN THE LOW POSITION, CALL LIGHT WITHIN REACH
[2017-03-06 07:56] LABS: BASOPHILS % (AUTO) 0.5 % (0.0-2.0); EOSINOPHILS # (AUTO) 0.1 /CMM (0.0-0.7); EOSINOPHILS % (AUTO) 1.5 % (0.0-6.0); HEMATOCRIT 30 % (33-45); HEMOGLOBIN 10.1 g/dL (11.5-14.8); LYMPHOCYTES % (AUTO) 17.6 % (20.0-44.0); MEAN CORPUSCULAR HEMOGLOBIN 30 PG (26.0-33.0); MEAN CORPUSCULAR HGB CONC 34 g/dl (31.0-36.0); MEAN CORPUSCULAR VOLUME 89 fL (82-100); MONOCYTES # (AUTO) 0.4 /CMM (0.1-1.30); MONOCYTES % (AUTO) 7.2 % (2.0-12.0); NEUTROPHILS % (AUTO) 73.2 % (43.0-81.0); RDW COEFFICIENT OF VARIATION 14.8 (11.5-15.0); RED BLOOD CELL COUNT(AUTO) 3.39 MIL/uL (4.0-5.2); WHITE BLOOD COUNT (AUTO) 5.5 K/uL (4.3-11.0)
[2017-03-06 07:57] LABS: CALCIUM, SERUM 7.8 mg/dL (8.5-10.1); CARBON DIOXIDE 20 mmol/L (21-32); CHLORIDE 114 mmol/L (98-107); GLUCOSE 79 mg/dL (74-106); MAGNESIUM 1.9 mg/dL (1.8-2.4); PHOSPHORUS 2.9 mg/dL (2.5-4.9); POTASSIUM 3.5 mmol/L (3.5-5.1); SODIUM SERUM 143 mmol/L (136-145); UREA NITROGEN, BLOOD 17 mg/dL (7-18)
[2017-03-06 08:00] VITALS: BP 160/61
[2017-03-06 08:35] LABS: CHOLESTEROL 77 mg/dL (<200); HDL CHOLESTEROL 31 mg/dL (40-60); LDL 36 mg/dL (0-99); THYROID STIMULATING HORMONE 1.657 uIU/mL (0.358-3.74); TRIGLYCERIDES 95 mg/dL (30-150)
[2017-03-06] MEDS: ASPIRIN 81 MG TAB.CHEW PO SCH (09:13)
[2017-03-06 09:33] LABS: PLATELET COUNT (AUTO) 46 /CMM (150-450)
[2017-03-06] MEDS: APIXABAN 2.5 MG TABLET PO SCH (10:00)
[2017-03-06] MEDS: DIGOXIN ELIX UDC 0.25 MG/5 ML UDC PO SCH (12:39)
[2017-03-06 16:00] VITALS: BP 115/49
[2017-03-06] MEDS: PHENYLEPHRINE/SHK LV/MO/PET,WH 30 GM TUBE RC PRN ×2 (18:10→22:53)
--- NOTE | 2017-03-06 18:42 | NUR ---
RN NOTES PT REMAINED IN STABLE CONDITION THROUGHOUT THE SHIFT. PT FAMILY AT BEDSIDE. PT COMPLAINS OF PAIN DUE TO HEMORRHOIDS, OBTAINED ORDER FOR HEMORRHOID OINTMENT, APPLIED. ALL NEEDS MET. WILL ENDORSE TO ONCOMING SHIFT.
--- NOTE | 2017-03-06 19:34 | NUR ---
RN OPENING NOTE RECEIVED PATIENT IN THE BED, FAMILY IS BY BEDSIDE, NO PAIN OR DISCOMFORT NOTED AT THIS TIME, FAMILY HELPED TO TRANSLATE, BED IN THE LOW POSITION, CALL LIGHT WITHIN REACH, SIDE RAILS UP X 2, WILL CONTINUE TO MONITOR
[2017-03-06 20:00] VITALS: BP 109/63
[2017-03-06] MEDS: MIRTAZAPINE 15 MG TABLET PO SCH (22:51)
[2017-03-06] MEDS: ATORVASTATIN 40 MG TABLET PO SCH (22:51)
[2017-03-06] MEDS: PHENYLEPHRINE/SHARK LIVER 1 EA SUPP.RECT RC SCH (22:52)
[2017-03-07] MEDS: ZOLPIDEM TARTRATE 5 MG TABLET PO PRN ×2 (00:07→23:59)
--- NOTE | 2017-03-07 03:24 | NUR ---
RN NOTE IV SITE ON THE RIGHT FOREARM WAS INFILTRATED, REINSERTED PERIPHERAL IV ON THE LEFT FOREARM 22 GAUGE WITH A HELP OF ANOTHER RN
[2017-03-07 04:00] VITALS: BP 102/63
[2017-03-07] MEDS: METRONIDAZOLE 500MG/ NS 100ML 500 MG in PREMIX 1 EA IV SCH ×3 (05:04→18:30)
--- NOTE | 2017-03-07 06:59 | NUR ---
RN CLOSING NOTE NO SIGNIFICANT CHANGES DURING THE SHIFT, NO ELEVATED TEMPERATURE NOTED, NO S/S OF DISTRESS, NO S/S OF PAIN, LEFT FOREARM IV 22 GAUGE IS INTACT, GOOD FLUSH SIDE RAIL UP X 2, BED ALARM ACTIVATED, BED IN THE LOW POSITION, CALL LIGHT WITHIN REACH
--- NOTE | 2017-03-07 08:23 | NUR ---
MS/RN NOTES RECIEVED PATIENT RESTING IN BED, A/OX1, IN NO APPARENT DISTRESS, ON ROOM AIR SATURATION ABOVE 91%. NO S/S OF PAIN OR DISCOMFORT NOTED. FLEY CATH IN PLACE DRAINING YELLOW CLEAR URINE. IV TO LEFT FA 22G INTACT H/L. PATIENT CURRENTLY ON FULL LIQUID DIET TO KEEP ORAL INTAKE LOW D/T COLITIS. SAFETY MEASURES RENDERED, CALL LIGHT PLACED WITHIN REACH. WILL CONTINUE TO MONITOR
[2017-03-07 08:24] LABS: BASOPHILS % (AUTO) 0.5 % (0.0-2.0); EOSINOPHILS # (AUTO) 0.1 /CMM (0.0-0.7); EOSINOPHILS % (AUTO) 1.8 % (0.0-6.0); HEMATOCRIT 28 % (33-45); HEMOGLOBIN 9.1 g/dL (11.5-14.8); LYMPHOCYTES # (AUTO) 1.1 /CMM (0.8-4.8); LYMPHOCYTES % (AUTO) 23.9 % (20.0-44.0); MEAN CORPUSCULAR HEMOGLOBIN 30 PG (26.0-33.0); MEAN CORPUSCULAR HGB CONC 33 g/dl (31.0-36.0); MEAN CORPUSCULAR VOLUME 90 fL (82-100); MONOCYTES # (AUTO) 0.5 /CMM (0.1-1.30); MONOCYTES % (AUTO) 10.5 % (2.0-12.0); NEUTROPHILS # (AUTO) 2.9 /CMM (1.8-8.9); NEUTROPHILS % (AUTO) 63.3 % (43.0-81.0); PLATELET COUNT (AUTO) 152 /CMM (150-450); RDW COEFFICIENT OF VARIATION 15.1 (11.5-15.0); RED BLOOD CELL COUNT(AUTO) 3.07 MIL/uL (4.0-5.2); WHITE BLOOD COUNT (AUTO) 4.6 K/uL (4.3-11.0)
[2017-03-07 08:32] LABS: CALCIUM, SERUM 8.1 mg/dL (8.5-10.1); CARBON DIOXIDE 20 mmol/L (21-32); CHLORIDE 116 mmol/L (98-107); CREATININE 0.9 mg/dL (0.6-1.3); GLUCOSE 95 mg/dL (74-106); MAGNESIUM 1.9 mg/dL (1.8-2.4); PHOSPHORUS 2.7 mg/dL (2.5-4.9); POTASSIUM 3.2 mmol/L (3.5-5.1); SODIUM SERUM 147 mmol/L (136-145); UREA NITROGEN, BLOOD 13 mg/dL (7-18)
[2017-03-07] MEDS: APIXABAN 2.5 MG TABLET PO SCH (09:00)
[2017-03-07] MEDS: ASPIRIN 81 MG TAB.CHEW PO SCH (09:20)
[2017-03-07] MEDS: POTASSIUM CHLORIDE 20 MEQ TAB.PRT.SR PO SCH ×2 (12:18→12:52)
[2017-03-07] MEDS: DIGOXIN ELIX UDC 0.25 MG/5 ML UDC PO SCH (12:32)
--- NOTE | 2017-03-07 14:55 | NUR ---
MS/RN NOTES PATIENT RESTING IN BED COMFORTABLY, NO S/S OF DISTRESS/DISCOMFORT NOTED. SEEN BY PT, DISCUSSED CAT SCAN RESULTS. PATIENT HAS L2 COMPRESSION FRACTURE AND MAY NEED THE LUMBAR BRACE. DR. KAHLIL PITT.
[2017-03-07 18:11] VITALS: BP 133/86
--- NOTE | 2017-03-07 19:40 | NUR ---
MS/RN NOTES PATIENT RESTING IN BED COMFORTABLY, ALL DUE MEDICATIONS GIVEN, ALL NEEDS MET AND ATTENDED. PATIENT STABLE, VITALS WITHIN NORMAL LIMITS. NO SIGNIFICANT CHANGES NOTED. PATIENT KEPT CLEAN AND DRY, REPOSITIONED EVERY 2 HOURS TOLERATED. SAFETY MEASURES RENDERED, CALL LIGHT PLACED WITHIN REACH. WILL ENDORSE CARE TO SURGICAL SCRUB TECHNICIAN FOR CURT.
--- NOTE | 2017-03-07 19:45 | NUR ---
MS/RN NOTES RECEIVED PT. LYING IN BED. PT. IS AWAKE, ALERT AND ORIENTED X1-2. BREATHING EVEN AND UNLABORED ON ROOM AIR. NO SOB, RESPIRATORY DISTRESS OR COMPLAINTS OF PAIN NOTED AT THIS TIME. PT. WITH LEFT FOREARM 22 GAUGE PERIPHERAL IV PRESENT, PATENT AND INTACT ADMINISTERING TO PT. NS @ 75ML/HR. PT. WITH LUONG CATHETER PRESENT, PATENT AND INTACT DRAINING CLEAR YELLOW URINE. PT. DAUGHTER PRESENT AT BEDSIDE. BED LOCKED AND IN LOWEST POSITION, SIDE RAILS UP X3, BED ALARM ON, CALL LIGHT WITHIN REACH, WILL CONTINUE TO MONITOR.
[2017-03-07 20:00] VITALS: BP 137/62
[2017-03-07] MEDS: MIRTAZAPINE 15 MG TABLET PO SCH (23:20)
[2017-03-07] MEDS: PHENYLEPHRINE/SHARK LIVER 1 EA SUPP.RECT RC SCH (23:20)
[2017-03-07] MEDS: ATORVASTATIN 40 MG TABLET PO SCH (23:21)
[2017-03-07] MEDS ORDERED: IV D5/0.45 NACL 1,000 ML IV PRN (23:30)
[2017-03-07] MEDS: CEFTRIAXONE 1 G in IV D5W 50 ML IV SCH (23:59)
[2017-03-08] MEDS: METRONIDAZOLE 500MG/ NS 100ML 500 MG in PREMIX 1 EA IV SCH ×2 (00:56→06:20)
[2017-03-08 04:00] VITALS: BP 105/54
--- NOTE | 2017-03-08 06:50 | NUR ---
MS/RN NOTES PT. IS LYING IN BED RESTING. BREATHING EVEN AND UNLABORED ON ROOM AIR. NO SOB, RESPIRATORY DISTRESS OR COMPLAINTS OF PAIN NOTED AT THIS TIME. PT. WITH LEFT FOREARM 22 GAUGE PERIPHERAL IV PRESENT, PATENT AND INTACT ADMINISTERING TO PT. D5 1/2 NS @ 75ML/HR. PT. WITH LUONG CATHETER PRESENT, PATENT AND INTACT DRAINING CLEAR YELLOW URINE. ALL PT. NEEDS MET. ALL DUE MEDICATIONS GIVEN. BED LOCKED AND IN LOWEST POSITION, SIDE RAILS UP X3, BED ALARM ON, CALL LIGHT WITHIN REACH, WILL ENDORSE TO DAYSNDFT NURSE FOR CONTINUITY OF CARE.
--- NOTE | 2017-03-08 07:10 | NUR ---
RN INITIAL NOTES: REC'D PT AWAKE ON BED, NOT IN ANY DISTRESS, A/O X 1-2, SYRIAC SPEAKING. ON ROOM AIR, NO SOB. HAS LFA G22, PL W/ D5 1/2 NS X 75 CC/HR INFUSING WELL. HAS FC PATENT & INTACT DRAINING TO ADEQUATE URINE OUTPUT. PROVIDED COMFORT & SAFETY MEASURES. BED KEPT LOW & IN LOCKED POS. CALL LIGHT PLACED W/IN REACH. ISOLATION PREC OBSERVED. WILL CONTINUE TO MONITOR AND ATTEND PT NEEDS.
[2017-03-08 08:00] VITALS: BP 108/50
[2017-03-08] MEDS: APIXABAN 2.5 MG TABLET PO SCH (08:36)
[2017-03-08] MEDS: ASPIRIN 81 MG TAB.CHEW PO SCH (08:36)
[2017-03-08 08:37] LABS: CALCIUM, SERUM 7.7 mg/dL (8.5-10.1); CARBON DIOXIDE 25 mmol/L (21-32); CHLORIDE 118 mmol/L (98-107); CREATININE 0.9 mg/dL (0.6-1.3); GLUCOSE 100 mg/dL (74-106); MAGNESIUM 1.8 mg/dL (1.8-2.4); PHOSPHORUS 2.5 mg/dL (2.5-4.9); POTASSIUM 3.6 mmol/L (3.5-5.1); SODIUM SERUM 148 mmol/L (136-145); UREA NITROGEN, BLOOD 10 mg/dL (7-18)
[2017-03-08 08:50] LABS: BASOPHILS % (AUTO) 0.4 % (0.0-2.0); EOSINOPHILS # (AUTO) 0.1 /CMM (0.0-0.7); EOSINOPHILS % (AUTO) 1.3 % (0.0-6.0); HEMATOCRIT 30 % (33-45); HEMOGLOBIN 9.5 g/dL (11.5-14.8); LYMPHOCYTES # (AUTO) 1.7 /CMM (0.8-4.8); LYMPHOCYTES % (AUTO) 28.8 % (20.0-44.0); MEAN CORPUSCULAR HEMOGLOBIN 30 PG (26.0-33.0); MEAN CORPUSCULAR HGB CONC 32 g/dl (31.0-36.0); MEAN CORPUSCULAR VOLUME 94 fL (82-100); MONOCYTES # (AUTO) 0.6 /CMM (0.1-1.30); MONOCYTES % (AUTO) 10.5 % (2.0-12.0); NEUTROPHILS # (AUTO) 3.4 /CMM (1.8-8.9); PLATELET COUNT (AUTO) 152 /CMM (150-450); RDW COEFFICIENT OF VARIATION 14.9 (11.5-15.0); RED BLOOD CELL COUNT(AUTO) 3.15 MIL/uL (4.0-5.2); WHITE BLOOD COUNT (AUTO) 5.7 K/uL (4.3-11.0)
--- NOTE | 2017-03-08 11:55 | NUR ---
RN NOTES: BACK BRACE ORDERED AND DELIVERED. BACK BRACE AT BEDSIDE. PHYSICAL THERAPIST MADE AWARE.
[2017-03-08] MEDS: DIGOXIN ELIX UDC 0.25 MG/5 ML UDC PO SCH (13:00)
[2017-03-08] MEDS: METRONIDAZOLE 250 MG TABLET PO SCH ×3 (13:20→23:50)
[2017-03-08 16:00] VITALS: BP 109/48
--- NOTE | 2017-03-08 16:00 | NUR ---
RN NOTES: PER DR. GUILLORY, NO ADVANCING OF DIET AT THIS TIME. KEEP PT ON FULL LIQUID DIET.
[2017-03-08] MEDS: IV D5/0.45 NACL 1,000 ML IV PRN (17:00)
--- NOTE | 2017-03-08 18:37 | NUR ---
RN CLOSING NOTES: NO ACUTE CHANGES NOTED W/IN SHIFT. PT TOLERATED ROOM AIR, NO SOB. LISA MIDLINE, PL KEPT PATENT & INTACT W/ D5 1/2 NS X 75 CC/HR INFUSING WELL. FC KEPT PATENT & INTACT DRAINING TO ADEQUATE URINE OUTPUT. PT KEPT WELL RESTED. NEEDS ATTENDED. BED KEPT LOW & IN LOCKED POS. CALL LIGHT PLACED W/IN REACH. ISOLATION PREC OBSERVED. DTR AT BEDSIDE. WILL ENDORSE TO PM RN FOR CURT.
[2017-03-08 20:00] VITALS: BP 124/56
--- NOTE | 2017-03-08 20:00 | NUR ---
RN NOTES RESTING COMFORTABLY IN BED WITH NO DISTRESS NOTED. ON ROOM AIR TOLERATING WELL. BREATHING EVEN AND UNLABORED. NO COMPLAINT OF PAIN OF THIS TIME. FC DRAINING CLEAR YELLOW WITH NO FOUL ODOR URINE. ALERT AND ORIENTED. FAMILY AT BEDSIDE. ARMINIAN SPEAKING. WILL CONTINUE TO MONITOR
[2017-03-08] MEDS: PHENYLEPHRINE/SHARK LIVER 1 EA SUPP.RECT RC SCH (22:11)
[2017-03-08] MEDS: ATORVASTATIN 40 MG TABLET PO SCH (22:11)
[2017-03-08] MEDS: MIRTAZAPINE 15 MG TABLET PO SCH (22:11)
[2017-03-08] MEDS: CEFTRIAXONE 1 G in IV D5W 50 ML IV SCH (23:24)
[2017-03-09 04:00] VITALS: BP 108/55
[2017-03-09] MEDS: METRONIDAZOLE 250 MG TABLET PO SCH ×4 (05:52→23:43)
[2017-03-09] MEDS: IV D5/0.45 NACL 1,000 ML IV PRN ×2 (05:58→21:37)
--- NOTE | 2017-03-09 06:30 | NUR ---
RN CLOSING NOTES NO SIGNIFICANT CHANGE OF CONDITION. ON ROOM AIR, BREATHING EVEN AND UNLABORED. ALERT AND ORIENTED. WILL ENDORSE TO AM SHIFT FOR CONTINUITY OF CARE
[2017-03-09 08:00] VITALS: BP 108/63
[2017-03-09 08:17] LABS: BASOPHILS # (AUTO) 0.1 /CMM (0.0-0.2); BASOPHILS % (AUTO) 1.9 % (0.0-2.0); EOSINOPHILS # (AUTO) 0.1 /CMM (0.0-0.7); EOSINOPHILS % (AUTO) 1.8 % (0.0-6.0); HEMATOCRIT 28 % (33-45); HEMOGLOBIN 9.4 g/dL (11.5-14.8); LYMPHOCYTES # (AUTO) 1.5 /CMM (0.8-4.8); LYMPHOCYTES % (AUTO) 31.4 % (20.0-44.0); MEAN CORPUSCULAR HEMOGLOBIN 30 PG (26.0-33.0); MEAN CORPUSCULAR HGB CONC 34 g/dl (31.0-36.0); MEAN CORPUSCULAR VOLUME 89 fL (82-100); MONOCYTES # (AUTO) 0.4 /CMM (0.1-1.30); MONOCYTES % (AUTO) 8.9 % (2.0-12.0); NEUTROPHILS # (AUTO) 2.6 /CMM (1.8-8.9); PLATELET COUNT (AUTO) 158 /CMM (150-450); RDW COEFFICIENT OF VARIATION 14.5 (11.5-15.0); RED BLOOD CELL COUNT(AUTO) 3.09 MIL/uL (4.0-5.2); WHITE BLOOD COUNT (AUTO) 4.7 K/uL (4.3-11.0)
[2017-03-09 08:49] LABS: CALCIUM, SERUM 7.9 mg/dL (8.5-10.1); CARBON DIOXIDE 20 mmol/L (21-32); CHLORIDE 115 mmol/L (98-107); CREATININE 0.9 mg/dL (0.6-1.3); GLUCOSE 111 mg/dL (74-106); MAGNESIUM 1.7 mg/dL (1.8-2.4); PHOSPHORUS 2.4 mg/dL (2.5-4.9); POTASSIUM 3.2 mmol/L (3.5-5.1); SODIUM SERUM 144 mmol/L (136-145); UREA NITROGEN, BLOOD 7 mg/dL (7-18)
[2017-03-09] MEDS: ASPIRIN 81 MG TAB.CHEW PO SCH (09:22)
[2017-03-09] MEDS: APIXABAN 2.5 MG TABLET PO SCH (09:22)
[2017-03-09] MEDS: POTASSIUM CHLORIDE 20 MEQ TAB.PRT.SR PO SCH ×2 (10:31→11:52)
[2017-03-09] MEDS: DIGOXIN ELIX UDC 0.25 MG/5 ML UDC PO SCH (13:00)
--- NOTE | 2017-03-09 13:24 | NUR ---
RN NOTE DIGOXIN NOT ADMINISTERED PULSE IS 59
[2017-03-09] MEDS: Magnesium 1GM/D5W 100ML PREMIX 100 ML IV SCH ×2 (13:26→14:27)
[2017-03-09 16:00] VITALS: BP 119/64
[2017-03-09] MEDS ORDERED: K PHOS NEUTRAL 250 MG TABLET PO ONE (16:00)
--- NOTE | 2017-03-09 19:30 | NUR ---
RN NOTES RECEIVED PATIENT IN BED AWAKE, AO X 2-3, ABLE TO MAKE NEEDS KNOWN. NO ACUTE DISTRESS NOTED. DENIES ANY PAIN AT THIS TIME. IV SITE PATENT, INTACTL; IVF INFUSING ORDERED. LUONG CATH PATENT, INTACT; DRAINING CLEAR PARAMJIT URINE. CONTACT ISOLATION MAINTAINED. ON LOW BED WITH BILATERAL UPPER SIDE RAILS UP. CALL LITTLE WITHIN EASY REACH. WILL CONTINUE TO MONITOR.
[2017-03-09 20:00] VITALS: BP 101/52
[2017-03-09] MEDS: MIRTAZAPINE 15 MG TABLET PO SCH (21:35)
[2017-03-09] MEDS: PHENYLEPHRINE/SHARK LIVER 1 EA SUPP.RECT RC SCH (21:35)
[2017-03-09] MEDS: ATORVASTATIN 40 MG TABLET PO SCH (21:35)
[2017-03-10] MEDS: CEFTRIAXONE 1 G in IV D5W 50 ML IV SCH (00:12)
[2017-03-10 04:00] VITALS: BP 102/45
[2017-03-10] MEDS: METRONIDAZOLE 250 MG TABLET PO SCH ×3 (05:50→17:35)
--- NOTE | 2017-03-10 06:36 | NUR ---
RN NOTES PATIENT ASLEEP, EASILY AROUSABLE. RESPIRATIONS EVEN. NO SIGNS OF PAIN NOTED. DUE MEDS GIVEN WITH NO ASE NOTED. NEEDS ATTENDED. KEPT CLEAN AND DRY. SAFETY PRECAUTIONS AND COMFORT MEASURES IN PLACE. WILL GIVE REPORT TO DAY SHIFT FOR CONTINUITY OF CARE.
--- NOTE | 2017-03-10 07:56 | NUR ---
RN OPENING NOTES PATIENT RESTING COMFORTABLY. AOX2/3 LUXEMBOURGISH SPEAKING. SATURATING ADEQUATELY ON RA. F/C DRAINING PARAMJIT URINE. LISA MIDLINE D5 1/2NS @ 75ML/HR. PATENT AND INTACT. PATIENT NPO FOR CT OF THE PELVIS W/O CONTRAST. RESPIRATIONS EVEN AND UNLABORED. DENIES SOB. AND CP. NO PAIN AT THIS TIME. NO ACUTE DISTRESS. BED LOCKED IN THE LOWEST POSITION WITH SIDERAILS UP X2. CALL LIGHT WITHIN REACH. WILL CONTINUE TO MONITOR, ASSESS AND EDUCATE PATIENT THROUGHOUT SHIFT.
[2017-03-10 08:00] VITALS: BP 133/98
[2017-03-10] MEDS: ASPIRIN 81 MG TAB.CHEW PO SCH (10:09)
[2017-03-10] MEDS: APIXABAN 2.5 MG TABLET PO SCH (10:10)
--- NOTE | 2017-03-10 11:00 | NUR ---
RN NOTES DR. GUILLORY NOTIFIED OF PATIENT 3.3 K+. MEALS STILL HELD. PATIENT MEALS STILL HELD. WAITING FOR PATIENT TO BE TAKEN FOR CT.
[2017-03-10 11:04] LABS: CALCIUM, SERUM 7.4 mg/dL (8.5-10.1); CARBON DIOXIDE 23 mmol/L (21-32); CHLORIDE 111 mmol/L (98-107); CREATININE 0.9 mg/dL (0.6-1.3); GLUCOSE 98 mg/dL (74-106); MAGNESIUM 1.9 mg/dL (1.8-2.4); POTASSIUM 3.3 mmol/L (3.5-5.1); SODIUM SERUM 140 mmol/L (136-145); UREA NITROGEN, BLOOD 5 mg/dL (7-18)
[2017-03-10] MEDS: DIGOXIN ELIX UDC 0.25 MG/5 ML UDC PO SCH (12:45)
[2017-03-10] MEDS: POTASSIUM CL. PREMIX PERIPHER. 50 ML IV SCH ×4 (15:08→20:03)
[2017-03-10 16:00] VITALS: BP 125/75
--- NOTE | 2017-03-10 19:30 | NUR ---
RN CLOSING NOTES PATIENT RESTING COMFORTABLY IN BED. AOX3 ICELANDIC SPEAKING. K+ REPLACED. CT RESULTS REPORTED TO MD. RESPIRATIONS EVEN AND UNLABORED. NO ACUTE DISTRESS NOTED. ALL NEEDS MET. ALL MEDS GIVEN APPROPRIATE. BE LOCKED IN THE LOWEST POSITION WITH SIDERAILS UP X2. CALL LIGHT WITHIN REACH. F/C DRAINING. WILL ENDORSE TO NIGHT RN FOR CURT.
[2017-03-10 20:00] VITALS: BP 137/73
--- NOTE | 2017-03-10 20:00 | NUR ---
MS1/RN RECEIVE PATIENT AWAKE, ALERT, ORIENTED, COMFORTABLE, NO C/O PAIN, NO DISTRESS NOTED, CALL LIGHT IN REACH. WILL MONITOR.
[2017-03-10 22:00] VITALS: BP 137/73
[2017-03-10] MEDS: ZOLPIDEM TARTRATE 5 MG TABLET PO PRN (22:28)
[2017-03-10] MEDS: ATORVASTATIN 40 MG TABLET PO SCH (22:28)
[2017-03-10] MEDS: MIRTAZAPINE 15 MG TABLET PO SCH (22:28)
[2017-03-10] MEDS: PHENYLEPHRINE/SHARK LIVER 1 EA SUPP.RECT RC SCH (22:29)
[2017-03-11] MEDS: METRONIDAZOLE 250 MG TABLET PO SCH ×5 (00:20→23:32)
[2017-03-11] MEDS: CEFTRIAXONE 1 G in IV D5W 50 ML IV SCH ×2 (00:20→23:30)
--- NOTE | 2017-03-11 06:17 | NUR ---
MS1/RN PATIENT STILL SLEEPING, REFUSED FLAGYL PO AT THIS TIME, WILL TRY AGAIN LATER, PATIENT ALSO REFUSED VITAL SIGNS AT 4:00 A.M., REFUSED TURNING. PATIENT IS CALM AND COMFORTABLE AT THIS TIME. WILL CONTINUE TO MONITOR.
--- NOTE | 2017-03-11 07:25 | NUR ---
MS1/RN PATIENT STILL SLEEPING AND REFUSED FLAGYL.
[2017-03-11 08:00] VITALS: BP 127/65
[2017-03-11] MEDS: APIXABAN 2.5 MG TABLET PO SCH (08:46)
[2017-03-11] MEDS: ASPIRIN 81 MG TAB.CHEW PO SCH (08:47)
--- NOTE | 2017-03-11 09:46 | NUR ---
MS RN NOTES RECEIVED PT ON BED SLEEPING. ON RA TOLERATING WELL. NO SIGN OF DISTRESS. HEAD OF BED ELEVATED. SIDE RAILS UP. WILL CONTINUE TO MONITOR PT CLOSELY.
[2017-03-11] MEDS: DIGOXIN ELIX UDC 0.25 MG/5 ML UDC PO SCH (12:00)
[2017-03-11 16:00] VITALS: BP 125/59
--- NOTE | 2017-03-11 18:56 | NUR ---
MS RN NOTES PT STABLE. DUE MEDS GIVEN. WILL ENDORSED TO THE PM NURSE
--- NOTE | 2017-03-11 19:30 | NUR ---
MS RN OPENING NOTES: PATIENT IN BED, AOX2, LAO SPEAKING, ON ROOM AIR, BREATHING EVEN AND UNLABORED. APPEARS CALM AND IN NO DISTRESS. LISA MIDLINE INTACT AND PATENT TO FLUSH. LUONG CATHETER IN PLACE DRAINING CLOUDY YELLOW URINE. PROVIDED FOR COMFORT AND SAFETY. BED IN LOWEST AND LOCKED POSITION, SIDERAILS UP X 3. BED ALARMS ON. WILL CONT TO MONITOR.
[2017-03-11 20:00] VITALS: BP 132/67
[2017-03-11] MEDS: ATORVASTATIN 40 MG TABLET PO SCH (21:50)
[2017-03-11] MEDS: MIRTAZAPINE 15 MG TABLET PO SCH (21:50)
--- NOTE | 2017-03-11 21:50 | NUR ---
RN NOTES: PATIENT REFUSED THE ANUSOL SUPPOSITORY. EXPLAINED INDICATION, PATIENT STILL REFUSED.
[2017-03-11] MEDS: PHENYLEPHRINE/SHARK LIVER 1 EA SUPP.RECT RC SCH ×2 (21:51→22:00)
[2017-03-12] MEDS: METRONIDAZOLE 250 MG TABLET PO SCH ×2 (05:27→12:33)
--- NOTE | 2017-03-12 06:51 | NUR ---
MS RN CLOSING NOTES: PATIENT IN BED, AOX2, ON ROOM AIR, BREATHING EVEN AND UNLABORED. APPEARS CALM AND IN NO DISTRESS. LISA MIDLINE INTACT AND PATENT TO FLUSH. LUONG CATHETER IN PLACE DRAINING CLOUDY YELLOW URINE. DUE MEDS GIVEN. PROVIDED FOR COMFORT AND SAFETY. MORNING CARE RENDERED. BED IN LOWEST AND LOCKED POSITION, SIDERAILS UP X 3, BED ALARMS ON. WILL ENDORSE TO AM RN FOR CURT.
--- NOTE | 2017-03-12 07:57 | NUR ---
MS/RN OPENING NOTE PATIENT IN BED IN STABLE CONDITION. A/O X 2-3, CROATIAN SPEAKING. NO SIGNS OF ACUTE DISTRESS. NO COMPLAIN OF PAIN OR DISCOMFORT. ON CONTACT ISOLATION FOR C DIFF STOOL. TOLERATING WELL. ALL NEEDS ATTENDED TO. CALL LIGHT WITHIN REACH. WILL CONTINUE TO MONITOR TO ENSURE SAFETY.
[2017-03-12 08:00] VITALS: BP 98/68
[2017-03-12 08:23] LABS: BASOPHILS % (AUTO) 0.6 % (0.0-2.0); EOSINOPHILS # (AUTO) 0.1 /CMM (0.0-0.7); EOSINOPHILS % (AUTO) 1.2 % (0.0-6.0); HEMATOCRIT 29 % (33-45); HEMOGLOBIN 9.6 g/dL (11.5-14.8); LYMPHOCYTES # (AUTO) 1.8 /CMM (0.8-4.8); LYMPHOCYTES % (AUTO) 38.4 % (20.0-44.0); MEAN CORPUSCULAR HEMOGLOBIN 29 PG (26.0-33.0); MEAN CORPUSCULAR HGB CONC 33 g/dl (31.0-36.0); MEAN CORPUSCULAR VOLUME 88 fL (82-100); MONOCYTES # (AUTO) 0.4 /CMM (0.1-1.30); MONOCYTES % (AUTO) 7.8 % (2.0-12.0); NEUTROPHILS # (AUTO) 2.4 /CMM (1.8-8.9); PLATELET COUNT (AUTO) 209 /CMM (150-450); RDW COEFFICIENT OF VARIATION 15.1 (11.5-15.0); RED BLOOD CELL COUNT(AUTO) 3.27 MIL/uL (4.0-5.2); WHITE BLOOD COUNT (AUTO) 4.7 K/uL (4.3-11.0)
[2017-03-12] MEDS: ASPIRIN 81 MG TAB.CHEW PO SCH (08:31)
[2017-03-12] MEDS: APIXABAN 2.5 MG TABLET PO SCH (08:32)
[2017-03-12 08:43] LABS: CALCIUM, SERUM 7.8 mg/dL (8.5-10.1); CREATININE 0.9 mg/dL (0.6-1.3); GLUCOSE 92 mg/dL (74-106); MAGNESIUM 1.9 mg/dL (1.8-2.4); PHOSPHORUS 2.5 mg/dL (2.5-4.9); UREA NITROGEN, BLOOD 6 mg/dL (7-18)
[2017-03-12 09:31] LABS: CARBON DIOXIDE 22 mmol/L (21-32); CHLORIDE 112 mmol/L (98-107); SODIUM SERUM 142 mmol/L (136-145)
[2017-03-12 10:10] VITALS: BP 98/68
[2017-03-12] MEDS: DIGOXIN ELIX UDC 0.25 MG/5 ML UDC PO SCH (12:36)
[2017-03-12 16:00] VITALS: BP 111/57
--- NOTE | 2017-03-12 17:08 | NUR ---
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 A/O X 2-3, HUNGARIAN SPEAKING. NO SIGNS OF ACUTE DISTRESS. NO COMPLAIN OF PAIN OR DISCOMFORT. DISCHARGE TEACHING AND INSTRUCTION PROVIDED, UNABLE TO COMPREHEND. REPORT GIVEN TO [facility] FROM [facility]. ALL NEEDS ATTENDED TO. NAME BAND AND IV LINE REMOVED. LEFT VIA GURNEY IN STABLE CONDITION, ACCOMPANIED BY 2 GEOGRAPHIC INFORMATION SYSTEMS DIRECTOR. ANDREAS DAUGHTER AWARE.
== END 2017-03-12 16:30 | disposition home health service (06) | DRG 720 ==
LOC: MEDSG1 22:54
PROC: 05H533Z Insertion of Infusion Device into Right Subclavian Vein, Percutaneous Approach (ICD-10-PCS; principal; 2017-03-08)
PROC: B546ZZA Ultrasonography of Right Subclavian Vein, Guidance (ICD-10-PCS; principal; 2017-03-08)
DX: A41.9 Sepsis, unspecified organism (principal); E43 Unspecified severe protein-calorie malnutrition; J90 Pleural effusion, not elsewhere classified; E87.0 Hyperosmolality and hypernatremia; R18.8 Other ascites; D68.59 Other primary thrombophilia; I31.3 Pericardial effusion (noninflammatory); K82.1 Hydrops of gallbladder; A09 Infectious gastroenteritis and colitis, unspecified; D69.6 Thrombocytopenia, unspecified; N39.0 Urinary tract infection, site not specified; I48.91 Unspecified atrial fibrillation; Z96.651 Presence of right artificial knee joint; E78.5 Hyperlipidemia, unspecified; I10 Essential (primary) hypertension; E66.9 Obesity, unspecified; Z66 Do not resuscitate; K80.20 Calculus of gallbladder without cholecystitis without obstruction; N28.1 Cyst of kidney, acquired; D63.8 Anemia in other chronic diseases classified elsewhere; I70.0 Atherosclerosis of aorta; M84.40XA Pathological fracture, unspecified site, initial encounter for fracture; I27.20 Pulmonary hypertension, unspecified
CPT/HCPCS: 36415; 36569; 80048-TC; 80061-TC; 83735-TC; 84100-TC; 84443-TC; 85025-TC; 87081-TC; A4216; J0696; J1650; J3475; J3480; J3490; J7030; J7050; J7060; Z7610